=== PATIENT | male | born 1970 | race Caucasian/White ===

== ENCOUNTER 2016-09-07 19:20 | Emergency (ER) | payer OTHER ==
[2016-09-07] MEDS ORDERED: OSELTAMIVIR PHOSPHATE 75 MG CAP (TAMIFLU) As Ordered ONE (21:45)
--- NOTE | 2016-09-07 22:15 | EDDOCDS ---
Physician Documentation [facility] Name: Donavon Jaime Age: 46 yrs Sex: Male : 1970 Arrival Date: 09/07/2016 Time: 19:20 Bed D2 Private MD: Magdi Alexander Abdul Disposition: 09/07/16 21:44 Discharged to Home/Self Care. Impression: Influenza due to identified novel influenza A virus. - Condition is Stable. - Discharge Instructions: Influenza Adult. - Prescriptions for Tamiflu 75 mg Oral Capsule - take 1 capsule by ORAL route every 12 hours for 5 days; 10 capsule. - Medication Reconciliation, Local Pharmacy Hours, Work Release Form - 3 day form. - Follow up: Magdi Alexander; When: Call to arrange an appointment; Reason: Recheck today's complaints, Continuance of care. - Problem is new. - Symptoms are unchanged. Historical: - Allergies: no known allergies; - Home Meds: 1. none - PMHx: none; - PSHx: none; - Social history: Smoking status: Patient states was never smoker of tobacco. No barriers to communication noted, The patient speaks fluent Italian. - Family history: Not pertinent. - : The pt / caregiver states he / she is not on anticoagulants. Home medication list is obtained from the patient. - Exposure Risk Screening:: None identified. Vital Signs: 09/07 19:22 BP 175 / 91; Pulse 78; Resp 20; Temp 98.6(O); Pulse Ox 98% on R/A; Weight 123.83 kg / kb5 273 lbs (M); Height 5 ft. 11 in. (180.34 cm) (R); Pain 7/10; 22:12 BP 168 / 88; Pulse 80; Resp 18; Temp 98.7(O); Pulse Ox 98% on R/A; Pain 0/10; jmb 19:22 Body Mass Index 38.08 (123.83 kg, 180.34 cm) kb5 MDM: 20:47 -Influenza A&B Rapid Antigen - Nose Ordered. EDMS 21:09 Financial registration complete. gjb 21:37 -Influenza A&B Rapid Antigen - Nose Reviewed. mo1 21:38 Oseltamivir 75 mg PO once ordered. mo1 Administered Medications: 21:48 Drug: Oseltamivir 75 mg [oseltamivir 75 mg capsule (1 caps)] Route: PO; bairon Signatures: Dispatcher [employer] Valeri Pope RN RN rs3 Alvaro Angeles PA PA mo1 Becker, Joshua, RN RN jmb Beck, Gabriela gjb MTDD
--- NOTE | 2016-09-07 22:15 | EDDOCDS ---
Nurse's Notes [facility] Name: Donavon Jaime Age: 46 yrs Sex: Male : 1970 Arrival Date: 09/07/2016 Time: 19:20 Bed D2 Private MD: Magdi Alexander Abdul Diagnosis: Influenza due to identified novel influenza A virus Presentation: 09/07 19:30 Presenting complaint: Patient states: generalized weakness, malaise, body ache, cough, rs3 cold since yesterday. Adult Sepsis Screening: The patient does not have new or worsening altered mentation. Patient's respiratory rate is less than 22. Systolic blood pressure is greater than 100. Patient has a qSOFA score of 0- Negative Sepsis Screen. Suicide/Homicide risk assessment- the patient denies having any suicidal and/or homicidal ideations and does not present with any other emotional, behavioral or mental health complaints. Status: Patient is not a flight service specialist or dependent. Transition of care: patient was not received from another setting of care. 19:30 Acuity: SHELLY Level 4 rs3 19:30 Method Of Arrival: Walkin/Carried/Asstd rs3 Triage Assessment: 19:32 General: Appears in no apparent distress. Pain: Location: generalized. HIV screening NA rs3 for this visit Offered previously. Historical: - Allergies: no known allergies; - Home Meds: 1. none - PMHx: none; - PSHx: none; - Social history: Smoking status: Patient states was never smoker of tobacco. No barriers to communication noted, The patient speaks fluent Finnish. - Family history: Not pertinent. - : The pt / caregiver states he / she is not on anticoagulants. Home medication list is obtained from the patient. - Exposure Risk Screening:: None identified. Screenin:12 Screening information is obtained from the patient. Fall risk: No risks identified. jmb Assistance ADL's: requires no assistance with activities of daily living. Abuse/DV Screen: The patient / caregiver reports he/she is: not in a situation that causes fear, pain or injury. Nutritional screening: No deficits noted. Advance Directives: Currently, there is no health care proxy. There is no active DNR order. There is no living will. There is no Power of Corporate Planning Manager. home support is adequate. Assessment: 22:12 General: Patient instructed on discharge instructions. Patient asked if there were any jmb questions regarding discharge, patient stated no. Patient signed discharge instructions. Patient discharged in stable condition. n. Vital Signs: 19:22 BP 175 / 91; Pulse 78; Resp 20; Temp 98.6(O); Pulse Ox 98% on R/A; Weight 123.83 kg kb5 (M); Height 5 ft. 11 in. (180.34 cm) (R); Pain 7/10; 22:12 BP 168 / 88; Pulse 80; Resp 18; Temp 98.7(O); Pulse Ox 98% on R/A; Pain 0/10; jmb 19:22 Body Mass Index 38.08 (123.83 kg, 180.34 cm) kb5 Vitals: 19:32 Log In Time: September 07, 2016 at 19:20. rs3 ED Course: 19:22 Patient visited by Iraj Ballard PCA. kb5 19:22 Magdi Alexander is Private Physician. kb5 19:22 Patient moved to Waiting kb5 19:31 Triage Initiated rs3 19:33 Patient moved to Pre RCE rs3 20:28 Patient moved to D2 ar3 20:31 Alvaro Angeles PA is PHCP. mo1 20:31 Randall Gant DO is Attending Physician. mo1 20:34 Patient visited by Alvaro Angeles PA. mo1 21:01 -Influenza A&B Rapid Antigen - Nose Sent. mb9 21:44 Magdi Alexander is Referral Physician. mo1 22:12 The patient / caregiver is instructed regarding the plan of care and ED course. jmb 22:12 No IV's were initiated during this patient's visit. No procedures done that require jmb assistance. Administered Medications: 21:48 Drug: Oseltamivir 75 mg [oseltamivir 75 mg capsule (1 caps)] Route: PO; jmb Order Results: Lab Order: -Influenza A&B Rapid Antigen - Nose; SPEC'M 09/07/16 20:55 Test: INFLUENZA A RAPID SCR by ICA; Value: INFLUENZA A RESULTS NEGATIVE; Status: F Test: INFLUENZA A RAPID SCR by ICA; Value: Comments:; Status: F Test: INFLUENZA B RAPID SCR by ICA; Value: INFLUENZA B RESULTS NEGATIVE; Status: F Test Note: ; The Influenza test is a direct rapid immunoassay for the qualitative detection of Influenza viral antigen. Cell culture (Viral Culture) testing should be considered to confirm NEGATIVE results and to assist in detecting other viruses that can provide similar clinical symptoms. Please contact the lab within 24 hours ([phone]) if confirmatory testing is desired. Outcome: 21:44 Discharge ordered by Provider. mo1 22:12 Discharge Assessment: Patient awake, alert and oriented x 3. No cognitive and/or jmb functional deficits noted. Patient verbalized understanding of disposition instructions. Patient awake and alert. obeys commands. The following High Risk Discharge criteria are identified: None. Discharged to home ambulatory. Condition: stable. Discharge instructions given to patient, Instructed on discharge instructions, follow up and referral plans. medication usage, Demonstrated understanding of instructions, medications, Pt was receptive of discharge instructions/ teaching. Prescriptions given X 1, Work note provided to patient. No special radiology studies were completed. Property sent home with patient. 22:14 Discharge Assessment: patient administered narcotics - no. bairon 22:14 Patient left the ED. bairon Signatures: Iraj Ballard, ASSEMBLER TUBING ASSEMBLER TUBING kb5 Valeri HealyRN RN rs3 Evelin Webb, ASSEMBLER TUBING ASSEMBLER TUBING ar3 Alvaro Angeles PA PA mo1 Alexis Jolly RN RN jmb Belles, Michael, RN RN mb9 MTDD
--- NOTE | 2016-09-09 23:15 | EDDOCDS ---
Nurse's Notes [facility] Name: Donavon Jaime Age: 46 yrs Sex: Male : 1970 Arrival Date: 09/07/2016 Time: 19:20 Bed D2 Private MD: Magdi Alexander Abdul Diagnosis: Influenza due to identified novel influenza A virus Presentation: 09/07 19:30 Presenting complaint: Patient states: generalized weakness, malaise, body ache, cough, rs3 cold since yesterday. Adult Sepsis Screening: The patient does not have new or worsening altered mentation. Patient's respiratory rate is less than 22. Systolic blood pressure is greater than 100. Patient has a qSOFA score of 0- Negative Sepsis Screen. Suicide/Homicide risk assessment- the patient denies having any suicidal and/or homicidal ideations and does not present with any other emotional, behavioral or mental health complaints. Status: Patient is not a road service locksmith or dependent. Transition of care: patient was not received from another setting of care. 19:30 Acuity: SHELLY Level 4 rs3 19:30 Method Of Arrival: Walkin/Carried/Asstd rs3 Triage Assessment: 19:32 General: Appears in no apparent distress. Pain: Location: generalized. HIV screening NA rs3 for this visit Offered previously. Historical: - Allergies: no known allergies; - Home Meds: 1. none - PMHx: none; - PSHx: none; - Social history: Smoking status: Patient states was never smoker of tobacco. No barriers to communication noted, The patient speaks fluent Slovak. - Family history: Not pertinent. - : The pt / caregiver states he / she is not on anticoagulants. Home medication list is obtained from the patient. - Exposure Risk Screening:: None identified. Screenin:12 Screening information is obtained from the patient. Fall risk: No risks identified. jmb Assistance ADL's: requires no assistance with activities of daily living. Abuse/DV Screen: The patient / caregiver reports he/she is: not in a situation that causes fear, pain or injury. Nutritional screening: No deficits noted. Advance Directives: Currently, there is no health care proxy. There is no active DNR order. There is no living will. There is no Power of Learning Support Resource Room Teacher. home support is adequate. Assessment: 22:12 General: Patient instructed on discharge instructions. Patient asked if there were any jmb questions regarding discharge, patient stated no. Patient signed discharge instructions. Patient discharged in stable condition. n. Vital Signs: 19:22 BP 175 / 91; Pulse 78; Resp 20; Temp 98.6(O); Pulse Ox 98% on R/A; Weight 123.83 kg kb5 (M); Height 5 ft. 11 in. (180.34 cm) (R); Pain 7/10; 22:12 BP 168 / 88; Pulse 80; Resp 18; Temp 98.7(O); Pulse Ox 98% on R/A; Pain 0/10; jmb 19:22 Body Mass Index 38.08 (123.83 kg, 180.34 cm) kb5 Vitals: 19:32 Log In Time: September 07, 2016 at 19:20. rs3 ED Course: 19:22 Patient visited by Iraj Ballard PCA. kb5 19:22 Magdi Alexander is Private Physician. kb5 19:22 Patient moved to Waiting kb5 19:31 Triage Initiated rs3 19:33 Patient moved to Pre RCE rs3 20:28 Patient moved to D2 ar3 20:31 Alvaro Angeles PA is PHCP. mo1 20:31 Randall Gant DO is Attending Physician. mo1 20:34 Patient visited by Alvaro Angeles PA. mo1 21:01 -Influenza A&B Rapid Antigen - Nose Sent. mb9 21:44 Magdi Alexander is Referral Physician. mo1 22:12 The patient / caregiver is instructed regarding the plan of care and ED course. jmb 22:12 No IV's were initiated during this patient's visit. No procedures done that require jmb assistance. 09/08 10:38 T-Sheet-- Draft Copy was scanned into [employer] and attached to record. gb Administered Medications: 09/07 21:48 Drug: Oseltamivir 75 mg [oseltamivir 75 mg capsule (1 caps)] Route: PO; jmb Order Results: Lab Order: -Influenza A&B Rapid Antigen - Nose; SPEC'M 09/07/16 20:55 Test: INFLUENZA A RAPID SCR by ICA; Value: INFLUENZA A RESULTS NEGATIVE; Status: F Test: INFLUENZA A RAPID SCR by ICA; Value: Comments:; Status: F Test: INFLUENZA B RAPID SCR by ICA; Value: INFLUENZA B RESULTS NEGATIVE; Status: F Test Note: ; The Influenza test is a direct rapid immunoassay for the qualitative detection of Influenza viral antigen. Cell culture (Viral Culture) testing should be considered to confirm NEGATIVE results and to assist in detecting other viruses that can provide similar clinical symptoms. Please contact the lab within 24 hours ([phone]) if confirmatory testing is desired. Outcome: 21:44 Discharge ordered by Provider. mo1 22:12 Discharge Assessment: Patient awake, alert and oriented x 3. No cognitive and/or jmb functional deficits noted. Patient verbalized understanding of disposition instructions. Patient awake and alert. obeys commands. The following High Risk Discharge criteria are identified: None. Discharged to home ambulatory. Condition: stable. Discharge instructions given to patient, Instructed on discharge instructions, follow up and referral plans. medication usage, Demonstrated understanding of instructions, medications, Pt was receptive of discharge instructions/ teaching. Prescriptions given X 1, Work note provided to patient. No special radiology studies were completed. Property sent home with patient. 22:14 Discharge Assessment: patient administered narcotics - no. jmb 22:14 Patient left the ED. b Signatures: Rosalie Espitia, Reg Reg gb Iraj Ballard, DIRECTOR OF HOSPITALITY DIRECTOR OF HOSPITALITY kb5 Valeri Healy,SIMÓN RN rs3 Evelin Webb, DIRECTOR OF HOSPITALITY DIRECTOR OF HOSPITALITY ar3 Alvaro Angeles PA PA mo1 Alexis Jolly RN RN jmb Belles, Michael, RN RN mb9 Chart Complete MTDD
--- NOTE | 2016-09-09 23:15 | EDDOCDS ---
Physician Documentation [facility] Name: Donavon Jaime Age: 46 yrs Sex: Male : 1970 Arrival Date: 09/07/2016 Time: 19:20 Bed D2 Private MD: Magdi Alexander Abdul Disposition: 09/07/16 21:44 Discharged to Home/Self Care. Impression: Influenza due to identified novel influenza A virus. - Condition is Stable. - Discharge Instructions: Influenza Adult. - Prescriptions for Tamiflu 75 mg Oral Capsule - take 1 capsule by ORAL route every 12 hours for 5 days; 10 capsule. - Medication Reconciliation, Local Pharmacy Hours, Work Release Form - 3 day form. - Follow up: Magdi Alexander; When: Call to arrange an appointment; Reason: Recheck today's complaints, Continuance of care. - Problem is new. - Symptoms are unchanged. Historical: - Allergies: no known allergies; - Home Meds: 1. none - PMHx: none; - PSHx: none; - Social history: Smoking status: Patient states was never smoker of tobacco. No barriers to communication noted, The patient speaks fluent Emirati. - Family history: Not pertinent. - : The pt / caregiver states he / she is not on anticoagulants. Home medication list is obtained from the patient. - Exposure Risk Screening:: None identified. Vital Signs: 09/07 19:22 BP 175 / 91; Pulse 78; Resp 20; Temp 98.6(O); Pulse Ox 98% on R/A; Weight 123.83 kg / kb5 273 lbs (M); Height 5 ft. 11 in. (180.34 cm) (R); Pain 7/10; 22:12 BP 168 / 88; Pulse 80; Resp 18; Temp 98.7(O); Pulse Ox 98% on R/A; Pain 0/10; jmb 19:22 Body Mass Index 38.08 (123.83 kg, 180.34 cm) kb5 MDM: 20:47 -Influenza A&B Rapid Antigen - Nose Ordered. EDMS 21:09 Financial registration complete. gjb 21:37 -Influenza A&B Rapid Antigen - Nose Reviewed. mo1 21:38 Oseltamivir 75 mg PO once ordered. mo1 09/08 10:38 T-Sheet-- Draft Copy was scanned into [employer] and attached to record. gb Administered Medications: 09/07 21:48 Drug: Oseltamivir 75 mg [oseltamivir 75 mg capsule (1 caps)] Route: PO; bairon Signatures: Dispatcher [employer] EDRosalie Porras, Reg Reg gb Valeri Healy RN RN rs3 Alvaro Angeles PA PA mo1 Alexis Jolly RN RN jmb Beck, Gabriela gjb The chart was reviewed and I authenticate all verbal orders and agree with the evaluation and treatment provided.Attachments: 09/08 10:38 T-Sheet-- Draft Copy gb Chart Complete MTDD
--- NOTE | 2016-09-09 23:15 | EDDOCDS ---
Physician Documentation [facility] Name: Donavon Jaime Age: 46 yrs Sex: Male : 1970 Arrival Date: 09/07/2016 Time: 19:20 Bed D2 Private MD: Magdi Alexander Abdul Disposition: 09/07/16 21:44 Discharged to Home/Self Care. Impression: Influenza due to identified novel influenza A virus. - Condition is Stable. - Discharge Instructions: Influenza Adult. - Prescriptions for Tamiflu 75 mg Oral Capsule - take 1 capsule by ORAL route every 12 hours for 5 days; 10 capsule. - Medication Reconciliation, Local Pharmacy Hours, Work Release Form - 3 day form. - Follow up: Magdi Alexander; When: Call to arrange an appointment; Reason: Recheck today's complaints, Continuance of care. - Problem is new. - Symptoms are unchanged. Historical: - Allergies: no known allergies; - Home Meds: 1. none - PMHx: none; - PSHx: none; - Social history: Smoking status: Patient states was never smoker of tobacco. No barriers to communication noted, The patient speaks fluent Belizean. - Family history: Not pertinent. - : The pt / caregiver states he / she is not on anticoagulants. Home medication list is obtained from the patient. - Exposure Risk Screening:: None identified. Vital Signs: 09/07 19:22 BP 175 / 91; Pulse 78; Resp 20; Temp 98.6(O); Pulse Ox 98% on R/A; Weight 123.83 kg / kb5 273 lbs (M); Height 5 ft. 11 in. (180.34 cm) (R); Pain 7/10; 22:12 BP 168 / 88; Pulse 80; Resp 18; Temp 98.7(O); Pulse Ox 98% on R/A; Pain 0/10; jmb 19:22 Body Mass Index 38.08 (123.83 kg, 180.34 cm) kb5 MDM: 20:47 -Influenza A&B Rapid Antigen - Nose Ordered. EDMS 21:09 Financial registration complete. gjb 21:37 -Influenza A&B Rapid Antigen - Nose Reviewed. mo1 21:38 Oseltamivir 75 mg PO once ordered. mo1 09/08 10:38 T-Sheet-- Draft Copy was scanned into [employer] and attached to record. gb Administered Medications: 09/07 21:48 Drug: Oseltamivir 75 mg [oseltamivir 75 mg capsule (1 caps)] Route: PO; bairon Signatures: Dispatcher [employer] EDRosalie Porras, Reg Reg gb Valeri Healy RN RN rs3 Alvaro Angeles PA PA mo1 Alexis Jolly RN RN jmb Beck, Gabriela gjb The chart was reviewed and I authenticate all verbal orders and agree with the evaluation and treatment provided.Attachments: 09/08 10:38 T-Sheet-- Draft Copy gb Chart Complete MTDD
== END 2016-09-07 22:14 | disposition home or self-care (01) ==
LOC: M ED 19:20
DX: J10.1 Influenza due to other identified influenza virus with other respiratory manifestations (principal)

== ENCOUNTER → 2016-12-04 | Outpatient (REF) | payer OTHER ==
[2016-12-04 13:07] LABS: ALBUMIN/GLOBULIN RATIO 1.18 (1.00-1.93); ALKALINE PHOSPHATASE 80 U/L (45-117); ALT/SGPT 45 U/L (12-78); ANION GAP 5 MEQ/L (8-16); AST/SGOT 24 U/L (15-37); BILIRUBIN,TOTAL 0.4 MG/DL (0.2-1.0); BLOOD UREA NITROGEN 12 MG/DL (7-18); CALCIUM LEVEL 9.2 MG/DL (8.5-10.1); CARBON DIOXIDE LEVEL 31 MEQ/L (21-32); CHLORIDE LEVEL 104 MEQ/L (98-107); CHOLESTEROL LEVEL 224 MG/DL (<200); GLOMERULAR FILTRATION RATE > 60.0 (>60); GLUCOSE, FASTING 111 MG/DL (70-105); POTASSIUM SERUM 4.8 MEQ/L (3.5-5.1); SODIUM LEVEL 140 MEQ/L (136-145); TOTAL PROTEIN 7.4 GM/DL (6.4-8.2); TRIGLYCERIDES LEVEL 153 MG/DL (<150)
== END ==
LOC: M SFHCLERA 09:23
PROVIDERS: ATTEND Physician Assistant
DX: R03.0 Elevated blood-pressure reading, without diagnosis of hypertension (principal); R81 Glycosuria; Z13.220 Encounter for screening for lipoid disorders

== ENCOUNTER → 2017-04-10 | Outpatient (REF) | payer OTHER ==
[2017-04-10 13:01] LABS: ALBUMIN 4.2 GM/DL (3.2-5.2); ALBUMIN/GLOBULIN RATIO 1.35 (1.00-1.93); ALKALINE PHOSPHATASE 90 U/L (45-117); ALT/SGPT 44 U/L (12-78); ANION GAP 6 MEQ/L (8-16); AST/SGOT 27 U/L (15-37); BILIRUBIN,TOTAL 0.7 MG/DL (0.2-1.0); BLOOD UREA NITROGEN 16 MG/DL (7-18); CALCIUM LEVEL 8.8 MG/DL (8.5-10.1); CARBON DIOXIDE LEVEL 30 MEQ/L (21-32); CHLORIDE LEVEL 108 MEQ/L (98-107); CHOLESTEROL LEVEL 115 MG/DL (<200); CREATININE FOR GFR 0.99 MG/DL (0.70-1.30); GLOMERULAR FILTRATION RATE > 60.0 (>60); GLUCOSE, FASTING 103 MG/DL (70-105); POTASSIUM SERUM 4.6 MEQ/L (3.5-5.1); SODIUM LEVEL 144 MEQ/L (136-145); TOTAL PROTEIN 7.3 GM/DL (6.4-8.2); TRIGLYCERIDES LEVEL 77 MG/DL (<150)
== END ==
LOC: M LAB REF 12:41
PROVIDERS: ATTEND Physician Assistant
DX: E78.2 Mixed hyperlipidemia (principal)

== ENCOUNTER → 2017-09-24 | Outpatient (REF) | payer OTHER ==
[2017-09-24 20:44] LABS: HEMATOCRIT 46.8 % (42.0-52.0); HEMOGLOBIN 15.4 g/dl (14.0-18.0); MEAN CORPUSCULAR HEMOGLOBIN 28.7 pg (27.0-33.0); MEAN CORPUSCULAR HGB CONC 32.9 g/dl (32.0-36.5); MEAN CORPUSCULAR VOLUME 87.2 fl (80.0-96.0); PLATELET COUNT, AUTOMATED 255 10^3/uL (150-450); RED BLOOD COUNT 5.37 10^6/uL (4.30-6.10); RED CELL DISTRIBUTION WIDTH 12.8 % (11.5-14.5); WHITE BLOOD COUNT 8.7 10^3/uL (4.0-10.0)
[2017-09-24 21:01] LABS: ALBUMIN 4.5 GM/DL (3.2-5.2); ALBUMIN/GLOBULIN RATIO 1.41 (1.00-1.93); ALKALINE PHOSPHATASE 94 U/L (45-117); ALT/SGPT 44 U/L (12-78); ANION GAP 6 MEQ/L (8-16); AST/SGOT 26 U/L (7-37); BILIRUBIN,TOTAL 0.6 MG/DL (0.2-1.0); BLOOD UREA NITROGEN 12 MG/DL (7-18); CALCIUM LEVEL 9.1 MG/DL (8.5-10.1); CARBON DIOXIDE LEVEL 31 MEQ/L (21-32); CHLORIDE LEVEL 103 MEQ/L (98-107); CHOLESTEROL LEVEL 135 MG/DL (<200); CHOLESTEROL RISK RATIO 3.648 (<5); CREATININE FOR GFR 0.99 MG/DL (0.70-1.30); GLOMERULAR FILTRATION RATE > 60.0 (>60); GLUCOSE, FASTING 93 MG/DL (70-100); HDL CHOLESTEROL 37 MG/DL (>40); LDL CHOLESTEROL 80.8 MG/DL (<100); NON-HDL-C 98 MG/DL; SODIUM LEVEL 140 MEQ/L (136-145); TOTAL PROTEIN 7.7 GM/DL (6.4-8.2); TRIGLYCERIDES LEVEL 86 MG/DL (<150)
[2017-09-24 21:04] LABS: ESTIMATED AVERAGE GLUCOSE 123 MG/DL (60-110); HEMOGLOBIN A1c 5.9 %
[2017-09-24 21:05] LABS: POTASSIUM SERUM 5.2 MEQ/L (3.5-5.1)
== END ==
LOC: M SFHCLERA 17:06
DX: I10 Essential (primary) hypertension (principal); E78.2 Mixed hyperlipidemia; R73.01 Impaired fasting glucose

== ENCOUNTER → 2018-03-24 | Outpatient (REF) | payer OTHER ==
[2018-03-24 19:21] LABS: ESTIMATED AVERAGE GLUCOSE 123 MG/DL (60-110); HEMOGLOBIN A1c 5.9 %
[2018-03-24 19:24] LABS: ANION GAP 8 MEQ/L (8-16); BLOOD UREA NITROGEN 16 MG/DL (7-18); CALCIUM LEVEL 8.5 MG/DL (8.5-10.1); CARBON DIOXIDE LEVEL 29 MEQ/L (21-32); CHLORIDE LEVEL 105 MEQ/L (98-107); CREATININE FOR GFR 0.94 MG/DL (0.70-1.30); GLOMERULAR FILTRATION RATE > 60.0 (>60); GLUCOSE, FASTING 79 MG/DL (70-100); POTASSIUM SERUM 4.3 MEQ/L (3.5-5.1); SODIUM LEVEL 142 MEQ/L (136-145)
== END ==
LOC: M SFHCPLAZ 15:22
DX: R73.03 Prediabetes (principal); I10 Essential (primary) hypertension

== ENCOUNTER → 2018-08-13 | Outpatient (CLI) | payer OTHER ==
[2018-08-13 14:54] LABS: HEMOGLOBIN A1c 6.7 %
== END ==
LOC: M WUC 10:06
PROVIDERS: ATTEND Family Medicine
DX: R73.03 Prediabetes (principal)

== ENCOUNTER → 2019-08-03 | Outpatient (REF) | payer OTHER ==
[2019-08-03 15:48] LABS: HEMOGLOBIN A1c 6.5 %
[2019-08-03 15:50] LABS: ALBUMIN 4.4 GM/DL (3.2-5.2); ALT/SGPT 39 U/L (12-78); BILIRUBIN,TOTAL 0.4 MG/DL (0.2-1.0); BLOOD UREA NITROGEN 16 MG/DL (7-18); CARBON DIOXIDE LEVEL 29 MEQ/L (21-32); CHLORIDE LEVEL 103 MEQ/L (98-107); CREATININE FOR GFR 0.95 MG/DL (0.70-1.30); GLOMERULAR FILTRATION RATE > 60.0 (>60); GLUCOSE, FASTING 76 MG/DL (70-100); POTASSIUM SERUM 4.2 MEQ/L (3.5-5.1); SODIUM LEVEL 139 MEQ/L (136-145); TOTAL PROTEIN 7.7 GM/DL (6.4-8.2)
== END ==
LOC: M SFHCPLAZ 14:14
PROVIDERS: ATTEND Nurse Practitioner Adult Health
DX: E11.9 Type 2 diabetes mellitus without complications (principal)

== ENCOUNTER → 2020-03-22 | Outpatient (CLI) | payer OTHER ==
[2020-03-22 14:45] LABS: ALBUMIN 3.9 GM/DL (3.2-5.2); ALT/SGPT 56 U/L (12-78); BILIRUBIN,TOTAL 0.4 MG/DL (0.2-1.0); BLOOD UREA NITROGEN 14 MG/DL (7-18); CALCIUM LEVEL 9.1 MG/DL (8.5-10.1); CARBON DIOXIDE LEVEL 31 MEQ/L (21-32); CHLORIDE LEVEL 102 MEQ/L (98-107); CHOLESTEROL LEVEL 146 MG/DL (<200); CHOLESTEROL RISK RATIO 4.709 (<5); CREATININE FOR GFR 1.04 MG/DL (0.70-1.30); GLOMERULAR FILTRATION RATE > 60.0 (>60); GLUCOSE, FASTING 156 MG/DL (70-100); HDL CHOLESTEROL 31 MG/DL (>40); LDL CHOLESTEROL 83 MG/DL (<100); NON-HDL-C 115 MG/DL; POTASSIUM SERUM 4.6 MEQ/L (3.5-5.1); SODIUM LEVEL 138 MEQ/L (136-145); TOTAL PROTEIN 7.4 GM/DL (6.4-8.2); TRIGLYCERIDES LEVEL 159 MG/DL (<150)
== END ==
LOC: M PLALAB 08:43
PROVIDERS: ATTEND Nurse Practitioner Adult Health
DX: E78.2 Mixed hyperlipidemia (principal); E11.9 Type 2 diabetes mellitus without complications; I10 Essential (primary) hypertension

== ENCOUNTER → 2022-01-02 | Outpatient (CLI) | payer OTHER ==
[2022-01-02 10:29] LABS: HEMOGLOBIN A1c 7.2 %
[2022-01-02 10:34] LABS: ALT/SGPT 59 U/L (12-78); BILIRUBIN,TOTAL 0.6 MG/DL (0.2-1.0); BLOOD UREA NITROGEN 15 MG/DL (7-18); CARBON DIOXIDE LEVEL 30 MEQ/L (21-32); CHLORIDE LEVEL 104 MEQ/L (98-107); CHOLESTEROL LEVEL 125 MG/DL (<200); CHOLESTEROL RISK RATIO 4.032 (<5); CREATININE FOR GFR 0.98 MG/DL (0.70-1.30); GLOMERULAR FILTRATION RATE > 60.0 (>60); GLUCOSE, FASTING 163 MG/DL (70-100); HDL CHOLESTEROL 31 MG/DL (>40); LDL CHOLESTEROL 67 MG/DL (<100); NON-HDL-C 94 MG/DL; POTASSIUM SERUM 4.7 MEQ/L (3.5-5.1); SODIUM LEVEL 139 MEQ/L (136-145); TOTAL PROTEIN 7.4 GM/DL (6.4-8.2); TRIGLYCERIDES LEVEL 135 MG/DL (<150)
== END ==
LOC: M PLALAB 07:46
PROVIDERS: ATTEND Nurse Practitioner Adult Health
DX: I10 Essential (primary) hypertension (principal); E11.9 Type 2 diabetes mellitus without complications; E78.2 Mixed hyperlipidemia

== ENCOUNTER → 2022-11-17 | Outpatient (REF) | payer OTHER | LOC: M SFHCPLAZ 22:13 | PROVIDERS: ATTEND Nurse Practitioner Adult Health | DX: I10 Essential (primary) hypertension (principal); E11.9 Type 2 diabetes mellitus without complications; E78.2 Mixed hyperlipidemia; Z53.9 Procedure and treatment not carried out, unspecified reason ==

== ENCOUNTER → 2024-03-11 | Outpatient (CLI) | payer OTHER ==
[2024-03-11 08:55] LABS: HEMOGLOBIN A1c 8.1 % (4.0-6.0)
[2024-03-11 09:02] LABS: PSA SCREENING 1.52 NG/ML (< 4.00)
[2024-03-11 09:03] LABS: CREATININE, URINE 94.2 MG/DL; MAU/CREAT RATIO 3.1 MCG/MG (0.0-30.0)
[2024-03-11 09:04] LABS: ALBUMIN 4.3 G/DL (3.2-5.2); ALKALINE PHOSPHATASE 101 U/L (46-116); ALT/SGPT 35 U/L (7.0-40); AST/SGOT 17 U/L (<34); BILIRUBIN,TOTAL 0.5 MG/DL (0.3-1.2); BLOOD UREA NITROGEN 18 MG/DL (9-23); CALCIUM LEVEL 9.4 MG/DL (8.5-10.1); CARBON DIOXIDE LEVEL 31 MMOL/L (20-31); CHLORIDE LEVEL 105 MMOL/L (98-107); CHOLESTEROL LEVEL 141 MG/DL (<200); CREATININE FOR GFR 0.81 MG/DL (0.70-1.30); GLOMERULAR FILTRATION RATE > 60.0 (>56); GLUCOSE, FASTING 187 MG/DL (60-100); HDL CHOLESTEROL 41.4 MG/DL (>40); LDL CHOLESTEROL 81.8 MG/DL (<100); NON-HDL-C 99.6 MG/DL; POTASSIUM SERUM 4.1 MMOL/L (3.5-5.1); SODIUM LEVEL 139 MMOL/L (136-145); TOTAL PROTEIN 7.6 G/DL (5.7-8.2); TRIGLYCERIDES LEVEL 89 MG/DL (<150)
== END ==
LOC: M LAB 08:04
PROVIDERS: ATTEND Nurse Practitioner Adult Health
DX: I10 Essential (primary) hypertension (principal); E11.9 Type 2 diabetes mellitus without complications; E78.2 Mixed hyperlipidemia; Z12.5 Encounter for screening for malignant neoplasm of prostate

== ENCOUNTER → 2024-05-25 | Outpatient (CLI) | payer OTHER | LOC: M CARPUL 13:24 | PROVIDERS: ATTEND Nurse Practitioner Adult Health | DX: R01.1 Cardiac murmur, unspecified (principal) ==

== ENCOUNTER → 2025-07-07 | Outpatient (CLI) | payer OTHER ==
[2025-07-07 11:12] LABS: PLATELET COUNT, AUTOMATED 279 10^3/uL (150-450)
[2025-07-07 11:42] LABS: ESTIMATED AVERAGE GLUCOSE 186.0 MG/DL (60-110)
[2025-07-07 11:44] LABS: ALT/SGPT 40 U/L (7.0-40); AST/SGOT 21 U/L (<34); CALCIUM LEVEL 8.8 MG/DL (8.5-10.1); CARBON DIOXIDE LEVEL 30 MMOL/L (20-31); CHLORIDE LEVEL 100 MMOL/L (98-107); CHOLESTEROL LEVEL 124 MG/DL (<200); CHOLESTEROL RISK RATIO 4.29 (<5); CREATININE FOR GFR 0.76 MG/DL (0.70-1.30); GLOMERULAR FILTRATION RATE > 90.0 (>56); LDL CHOLESTEROL 69.3 MG/DL (<100); NON-HDL-C 95.1 MG/DL; POTASSIUM SERUM 4.0 MMOL/L (3.5-5.1); PSA SCREENING 1.47 NG/ML (< 4.00); SODIUM LEVEL 140 MMOL/L (136-145); TRIGLYCERIDES LEVEL 129 MG/DL (<150)
[2025-07-08 14:15] LABS: CREATININE, URINE 75.5 MG/DL; MALB URINE SIEMENS 5.0 MG/L; MAU/CREAT RATIO 6.6 MCG/MG (0.0-30.0)
== END ==
LOC: M LAB 09:59
PROVIDERS: ATTEND Nurse Practitioner Adult Health
DX: I10 Essential (primary) hypertension (principal); E78.2 Mixed hyperlipidemia; E11.9 Type 2 diabetes mellitus without complications; Z12.5 Encounter for screening for malignant neoplasm of prostate